=== PATIENT | male | born 1975 | race Caucasian/White ===

== ENCOUNTER → 2018-12-31 | Emergency (ER) | payer MEDICAID ==
[~2018-12-31] VITALS: Ht 165.1 cm; Wt 73.1 kg
[~2018-12-31] MED LIST: NAPR-985 PO
[2018-12-31 20:55] VITALS: Ht 165.1 cm; Wt 73.1 kg
--- NOTE | 2019-01-01 00:10 | ERD ---
ER Documentation Chief Complaint Chief Complaint L knee pain today HPI 43-year-old male with no past medical surgical history presents with 1 day complaint of left knee pain. Patient states knee pain began after vacuuming inside of his vehicle. Denies any trauma or injury to left knee. He denies any paresthesias or numbness to the left lower extremity. He otherwise without complaint. At time of evaluation patient able to stand and ambulate without issue. ROS All systems reviewed and are negative except as per history of present illness. Allergies Allergies: Coded Allergies: No Known Allergy (Unverified , 06/12/14) PMhx/Soc Medical and Surgical Hx: pt denies Medical Hx, pt denies Surgical Hx Hx Alcohol Use: No Hx Substance Use: No Hx Tobacco Use: No FmHx Family History: No diabetes, No coronary disease, No other Physical Exam Vitals Vital Signs Date Temp Pulse Resp B/P (MAP) Pulse Ox O2 O2 Flow FiO2 Time Delivery Rate 12/31/18 98.2 65 16 145/92 97 20:55 (109) Physical Exam I have reviewed the triage vital signs. Const: Well nourished, well developed, appears stated age Eyes: PERRL, no conjunctival injection HENT: NCAT, Neck supple without meningismus CV: RRR, Warm, well-perfused extremities RESP: CTAB, Unlabored respiratory effort GI: soft, non-tender, non-distended, no masses MSK: No gross deformities appreciated Lower Extremity - bilateral: Skin: No laceration Compartments: Soft Motor: Full active range of motion hip/knee/ankle/foot Sensation: Intact to light touch FDWS/MF/LF/P surfaces. Bones: Nontender pelvis/knee/proximal tibia/ malleoli/foot Joints: No effusion or laxity Pulses/Perfusion: 2+ DP, Capillary refill < 2 seconds Skin: Warm, dry. No rashes Neuro: grossly non focal Psych: Appropriate mood and affect. Procedures/MDM 43-year-old male who presents with complaint of left knee pain. I doubt any emergent cause for his knee pain. It is likely secondary to sprain of left knee. There is no indications for imaging based on exam [place] knee rules. plan: NSAID's Pain control DISPOSITION PLAN: I explained to him that he needs to follow-up with his regular doctor in case symptoms do not improve as he may require additional imaging such as MRI even though no doubtful need. We discussed follow up with the patient's primary care doctor within 24 to 48 hours. Patient counseled regarding my diagnostic impression and care plan. Prior to discharge all questions answered. Pt agrees with treatment plan and understands strict return precautions. Precautionary instructions provided including instructions to return to the ER if not improving or for any worsening or changing symptoms or concerns. Departure Diagnosis: Primary Impression: Knee pain Condition: Stable SHMUEL MONTES PA-C Jan 01, 2019 00:10
[2019-01-01 00:22] VITALS: BP 143/89; PULSE 68; RESP 16
== END | disposition home or self-care (01) ==
LOC: FTE 20:47
DX: M25.562 Pain in left knee (principal)
CPT/HCPCS: 99282